=== PATIENT | male | born 1995 | race Caucasian/White ===

== ENCOUNTER 2018-12-23 03:17 | Emergency (ER) | payer MEDICAID, OTHER ==
[~2018-12-23] VITALS: Ht 175.3 cm; Wt 65.9 kg
[2018-12-23] MEDS ORDERED: CITA10TA5 PO (03:23)
[2018-12-23] MEDS ORDERED: OXYB5TAB10 PO (03:23)
[2018-12-23] MEDS ORDERED: IBUP-1022 PO (03:23)
[2018-12-23] MEDS ORDERED: CLEO300C2 PO (04:27)
[2018-12-23] MEDS ORDERED: CLINDAMYCIN 150 MG CAP PO ONE (04:30)
[2018-12-23] MEDS ORDERED: KETOROLAC 60 MG/2 ML VIAL (J1885) IM ONE (04:30)
[2018-12-23 04:52] VITALS: BP 131/88
[2018-12-23] MEDS ORDERED: ACET-907 PO (20:45)
[2018-12-23] MEDS ORDERED: NORC1TAB7 PO (21:59)
== END 2018-12-23 05:11 | disposition home or self-care (01) ==
LOC: M ED 03:17
DX: K02.9 Dental caries, unspecified (principal); Z79.899 Other long term (current) drug therapy
CPT/HCPCS: 96372; 99283; J1885

== ENCOUNTER 2018-12-23 18:29 | Emergency (ER) | payer OTHER ==
[~2018-12-23] VITALS: Ht 175.3 cm; Wt 68.2 kg
[~2018-12-23 18:29] MED LIST: CITA10TA5 PO; CLEO300C2 PO; IBUP-1022 PO; OXYB5TAB10 PO
[2018-12-23] MEDS ORDERED: ACET-907 PO (20:45)
[2018-12-23] MEDS ORDERED: NORC1TAB7 PO (21:59)
[2018-12-23] MEDS ORDERED: NORCO 5/325MG TABLET (BULK FOR ED) PO ONE (22:00)
[2018-12-23 22:07] VITALS: BP 118/77
[2018-12-23] MEDS ORDERED: ONDANSETRON 4 MG ORAL DISINTEGRATING TAB (Q0162 PER 1MG) PO ONE (22:15)
== END 2018-12-23 22:19 | disposition home or self-care (01) ==
LOC: M ED 18:29
DX: K02.9 Dental caries, unspecified (principal); Z79.899 Other long term (current) drug therapy; F17.210 Nicotine dependence, cigarettes, uncomplicated
CPT/HCPCS: 99283; Q0162